=== PATIENT | female | born 1970 | race Caucasian/White ===

== ENCOUNTER 2018-02-21 14:09 | Emergency (ER) | payer MEDICAID ==
[~2018-02-21] VITALS: Ht 162.6 cm; Wt 58.0 kg
[~2018-02-21 14:09] MED LIST: ATOR10TA70 PO; ESOM40CA30 PO; GABA-532 PO; GABA300C PO; LITH300C43 PO; PAT0.1OS OP; THYROID MED; ZOL50T PO
[2018-02-21 14:15] VITALS: BP 126/71
[2018-02-21] MEDS ORDERED: AZIT-57 PO (14:44)
== END 2018-02-21 15:03 | disposition home or self-care (01) ==
LOC: ER 14:09
DX: J20.9 Acute bronchitis, unspecified (principal); E78.00 Pure hypercholesterolemia, unspecified; E03.9 Hypothyroidism, unspecified; Z56.0 Unemployment, unspecified; Z90.710 Acquired absence of both cervix and uterus; Z90.49 Acquired absence of other specified parts of digestive tract; Z79.899 Other long term (current) drug therapy
CPT/HCPCS: 99283

== ENCOUNTER 2018-08-22 18:04 | Emergency (ER) | payer MEDICAID ==
[~2018-08-22] VITALS: Ht 565.3 cm; Wt 72.0 kg
[2018-08-22 18:12] VITALS: BP 134/54
== END 2018-08-22 19:21 | disposition left against medical advice (07) ==
LOC: ER 18:05
DX: R07.9 Chest pain, unspecified (principal); R06.02 Shortness of breath; Z53.21 Procedure and treatment not carried out due to patient leaving prior to being seen by health care provider
CPT/HCPCS: 93005

== ENCOUNTER 2018-10-11 12:10 | Emergency (ER) | payer MEDICAID ==
[~2018-10-11] VITALS: Ht 162.6 cm; Wt 75.5 kg
[2018-10-11 12:33] VITALS: BP 115/59
[2018-10-11] MEDS ORDERED: TETanus/Pertussis (Acell)/Diphther VAC/PF (Tdap-Adult) 0.5ml syringe IM ONE (12:45)
== END 2018-10-11 13:26 | disposition home or self-care (01) ==
LOC: ER 12:11
DX: S91.332A Puncture wound without foreign body, left foot, initial encounter (principal); E78.00 Pure hypercholesterolemia, unspecified; E03.9 Hypothyroidism, unspecified; Z90.710 Acquired absence of both cervix and uterus; Z90.49 Acquired absence of other specified parts of digestive tract; Z56.0 Unemployment, unspecified; W22.8XXA Striking against or struck by other objects, initial encounter; Y93.89 Activity, other specified; Y92.89 Other specified places as the place of occurrence of the external cause; Y99.8 Other external cause status
CPT/HCPCS: 90471; 90715; 99283

== ENCOUNTER 2019-01-27 19:03 | Emergency (ER) | payer MEDICAID ==
[~2019-01-27] VITALS: Ht 162.6 cm; Wt 79.1 kg
[~2019-01-27 19:03] MED LIST changes: +TOBR5DRO2 LEFTEYE
[2019-01-27 19:17] VITALS: BP 113/68
[2019-01-27] MEDS ORDERED: ALBU8HFA PO (20:19)
== END 2019-01-27 20:46 | disposition home or self-care (01) ==
LOC: ER 19:03
DX: J45.909 Unspecified asthma, uncomplicated (principal); E78.00 Pure hypercholesterolemia, unspecified; E03.9 Hypothyroidism, unspecified; F15.90 Other stimulant use, unspecified, uncomplicated; F17.200 Nicotine dependence, unspecified, uncomplicated; Z90.49 Acquired absence of other specified parts of digestive tract; Z90.710 Acquired absence of both cervix and uterus; Z56.0 Unemployment, unspecified; Z79.899 Other long term (current) drug therapy
CPT/HCPCS: 71045; 93005; 99283

== ENCOUNTER 2020-04-14 17:43 | Emergency (ER) | payer MEDICAID ==
[~2020-04-14 17:43] MED LIST changes: -ESOM40CA30 PO; +ESOM40CA49 PO; +SERT-153 PO; -ZOL50T PO
== END 2020-04-14 18:16 | disposition left against medical advice (07) ==
LOC: ER 17:44
DX: R10.9 Unspecified abdominal pain (principal); Z53.21 Procedure and treatment not carried out due to patient leaving prior to being seen by health care provider

== ENCOUNTER 2020-04-17 13:38 | Emergency (ER) | payer MEDICAID ==
[~2020-04-17] VITALS: Ht 162.6 cm; Wt 85.2 kg
[2020-04-17 14:07] LABS: BASOPHILS # (AUTO) 0.1 X10'3 (0-0.2); BASOPHILS % (AUTO) 0.8 % (0-1); EOSINOPHILS # (AUTO) 0.2 X10'3 (0-0.9); EOSINOPHILS % (AUTO) 2.6 % (0-6); HEMATOCRIT 36.8 % (35.0-45.0); HEMOGLOBIN 12.2 g/dl (12.0-16.0); LYMPHOCYTES # (AUTO) 1.7 X10'3 (1.1-4.8); LYMPHOCYTES % (AUTO) 25.2 % (21-51); MEAN CORPUSCULAR HEMOGLOBIN 31.5 PG (27.0-31.0); MEAN CORPUSCULAR HGB CONC 33.1 g/dL (33.0-36.5); MEAN CORPUSCULAR VOLUME 95.2 FL (78-98); MEAN PLATELET VOLUME 7.8 FL (7.4-10.4); MONOCYTES # (AUTO) 0.5 X10'3 (0-0.9); MONOCYTES % (AUTO) 7.2 % (2-12); NEUTROPHILS # (AUTO) 4.3 X10'3 (1.8-7.7); NEUTROPHILS % (AUTO) 64.2 % (42-75); PLATELET COUNT 299 X10'3 (140-440); RED BLOOD COUNT 3.87 X10'6 (4.20-5.60); WHITE BLOOD COUNT 6.7 X10'3 (4.5-11.0)
[2020-04-17 14:20] LABS: ALANINE AMINOTRANSFERASE 22 U/L (12-78); ALBUMIN 3.9 G/DL (3.4-5.0); ALBUMIN/GLOBULIN RATIO 1.1 (1.1-1.5); ALKALINE PHOSPHATASE 68 IU/L (46-116); AMYLASE 48 U/L (25-115); ANION GAP 11 (8-16); ASPARTATE AMINO TRANSFERASE 19 U/L (10-37); BILIRUBIN,TOTAL 0.3 MG/DL (0.1-1.0); BLOOD UREA NITROGEN 14 MG/DL (7-18); BUN/CREATININE RATIO 12.5 (6.6-38.0); CALCIUM 9.7 MG/DL (8.5-10.1); CHLORIDE 105 MMOL/L (99-107); CREATININE 1.12 MG/DL (0.40-0.90); GLUCOSE 126 MG/DL (70-104); LIPASE 155 U/L (73-393); SODIUM 140 MMOL/L (135-145); TOTAL CARBON DIOXIDE 24.2 MMOL/L (24-32); TOTAL PROTEIN 7.4 G/DL (6.4-8.2); eGFR 51 ML/MIN
[2020-04-17 14:23] LABS: CLARITY,URINE CLEAR (Clear); COLOR,URINE YELLOW (Yellow); GLUCOSE, URINE NEGATIVE (Neg); KETONES,URINE NEGATIVE (Neg); LEUKOCYTE ESTERASE ,URINE NEGATIVE (Neg); NITRITES, URINE NEGATIVE (Neg); OCCULT BLOOD,URINE NEGATIVE (Neg); PROTEIN,URINE NEGATIVE (Neg); UROBILINOGEN,URINE 0.2 E.U/dL (0.2-1.0)
[2020-04-17 14:24] LABS: URINE HCG NEGATIVE (NEG)
[2020-04-17 14:26] LABS: UA COLLECTION TYPE CLN CATCH MIDSTREAM
[2020-04-17] MEDS ORDERED: ONDA4TAB6 PO (14:29)
[2020-04-17] MEDS ORDERED: ondansetron/PF 4mg/2ml inj IV ONE (14:30)
[2020-04-17] MEDS ORDERED: normal saline 1000ML IV soln IVB ONE (14:30)
[2020-04-17] MEDS ORDERED: ketorolac trometh. 30mg/ml inj. IV ONE (14:30)
[2020-04-17] MEDS ORDERED: famotidine/PF 10 mg/ml inj IV ONE (14:30)
[2020-04-17 15:22] VITALS: BP 100/62
== END 2020-04-17 15:25 | disposition home or self-care (01) ==
LOC: ER 13:39
DX: A08.4 Viral intestinal infection, unspecified (principal); R11.2 Nausea with vomiting, unspecified; R10.30 Lower abdominal pain, unspecified; E78.00 Pure hypercholesterolemia, unspecified; J45.909 Unspecified asthma, uncomplicated; E03.9 Hypothyroidism, unspecified; F17.200 Nicotine dependence, unspecified, uncomplicated; F15.90 Other stimulant use, unspecified, uncomplicated; Z56.0 Unemployment, unspecified; Z90.49 Acquired absence of other specified parts of digestive tract; Z90.710 Acquired absence of both cervix and uterus; Z79.899 Other long term (current) drug therapy
CPT/HCPCS: 36415; 80053; 81003; 81025; 82150; 83690; 85025; 96361; 96374; 96375; 99284; J1885; J2405; J3490; J7030

== ENCOUNTER 2020-05-25 07:54 | Day surgery (SDC) | payer MEDICAID ==
[~2020-05-25] VITALS: Ht 162.6 cm; Wt 81.8 kg
[~2020-05-25 07:54] MED LIST changes: +ONDA4TAB6 PO
[2020-05-25 08:05] VITALS: BP 135/80
[2020-05-25] MEDS ORDERED: LIDOcaine Viscous 15ml cup ONE (08:07)
[2020-05-25] MEDS ORDERED: MIDAZolam 5mg/5ml vial ONE (08:07)
[2020-05-25] MEDS ORDERED: fentaNYL/PF 50MCG/1 ML 2ML syringe ONE (08:07)
[2020-05-25] MEDS ORDERED: OLOP5DRO14 EACHEYE (08:57)
[2020-05-25 09:59] VITALS: BP 92/53
[2020-05-25 10:03] VITALS: BP 98/63
[2020-05-25 10:13] VITALS: BP 89/50
[2020-05-25 10:23] VITALS: BP 99/58
== END 2020-05-25 10:25 | disposition home or self-care (01) ==
LOC: GI LAB 07:54
PROVIDERS: ATTEND Internal Medicine Gastroenterology
DX: R13.10 Dysphagia, unspecified (principal); K29.50 Unspecified chronic gastritis without bleeding; K20.8 Other esophagitis
CPT/HCPCS: 43239; 99152; J2250; J3010; J7040; A4620

== ENCOUNTER 2020-08-14 13:14 | Emergency (ER) | payer MEDICAID ==
[~2020-08-14] VITALS: Ht 162.6 cm; Wt 86.1 kg
[~2020-08-14 13:14] MED LIST changes: -ESOM40CA49 PO; -GABA-532 PO; +OLOP5DRO14 EACHEYE; -ONDA4TAB6 PO; -PAT0.1OS OP; -TOBR5DRO2 LEFTEYE
[2020-08-14 13:30] VITALS: BP 146/68
[2020-08-14] MEDS ORDERED: iohexol 300mg/ml 100ml inj. ONE (15:21)
[2020-08-14 15:37] LABS: BASOPHILS # (AUTO) 0.1 X10'3 (0-0.2); BASOPHILS % (AUTO) 0.9 % (0-1); EOSINOPHILS # (AUTO) 0.2 X10'3 (0-0.9); EOSINOPHILS % (AUTO) 2.6 % (0-6); HEMATOCRIT 37.5 % (35.0-45.0); HEMOGLOBIN 12.5 g/dl (12.0-16.0); LYMPHOCYTES # (AUTO) 2.2 X10'3 (1.1-4.8); LYMPHOCYTES % (AUTO) 30.6 % (21-51); MEAN CORPUSCULAR HEMOGLOBIN 31.6 PG (27.0-31.0); MEAN CORPUSCULAR HGB CONC 33.2 g/dL (33.0-36.5); MEAN CORPUSCULAR VOLUME 95.1 FL (78-98); MEAN PLATELET VOLUME 7.3 FL (7.4-10.4); MONOCYTES # (AUTO) 0.5 X10'3 (0-0.9); MONOCYTES % (AUTO) 6.5 % (2-12); NEUTROPHILS # (AUTO) 4.3 X10'3 (1.8-7.7); NEUTROPHILS % (AUTO) 59.4 % (42-75); PLATELET COUNT 292 X10'3 (140-440); RED BLOOD COUNT 3.95 X10'6 (4.20-5.60); RED CELL DISTRIBUTION WIDTH 13.3 % (11.5-14.5); WHITE BLOOD COUNT 7.2 X10'3 (4.5-11.0)
[2020-08-14 15:52] LABS: ALANINE AMINOTRANSFERASE 106 U/L (12-78); ALBUMIN/GLOBULIN RATIO 1.1 (1.1-1.5); ALKALINE PHOSPHATASE 89 IU/L (46-116); ANION GAP 7 (8-16); ASPARTATE AMINO TRANSFERASE 43 U/L (10-37); BILIRUBIN,TOTAL 0.4 MG/DL (0.1-1.0); BLOOD UREA NITROGEN 21 MG/DL (7-18); CALCIUM 10.1 MG/DL (8.5-10.1); CHLORIDE 106 MMOL/L (99-107); GLUCOSE 85 MG/DL (70-104); POTASSIUM 3.9 MMOL/L (3.5-5.1); SODIUM 141 MMOL/L (135-145); TOTAL CARBON DIOXIDE 28.3 MMOL/L (24-32); TOTAL PROTEIN 7.7 G/DL (6.4-8.2); eGFR 58 ML/MIN
[2020-08-14] MEDS ORDERED: MISO100T42 PO (17:15)
== END 2020-08-14 17:35 | disposition home or self-care (01) ==
LOC: ER 13:14
DX: R10.9 Unspecified abdominal pain (principal); E78.00 Pure hypercholesterolemia, unspecified; J45.909 Unspecified asthma, uncomplicated; E03.9 Hypothyroidism, unspecified; F41.9 Anxiety disorder, unspecified; F31.9 Bipolar disorder, unspecified; F15.90 Other stimulant use, unspecified, uncomplicated; Z90.49 Acquired absence of other specified parts of digestive tract; Z98.890 Other specified postprocedural states; Z56.0 Unemployment, unspecified; Z79.899 Other long term (current) drug therapy
CPT/HCPCS: 36415; 74177; 80053; 85025; 99285; Q9967

== ENCOUNTER 2020-08-27 14:03 | Emergency (ER) | payer MEDICAID ==
[~2020-08-27] VITALS: Ht 162.6 cm; Wt 86.0 kg
[~2020-08-27 14:03] MED LIST changes: +MISO100T42 PO
[2020-08-27 14:45] LABS: BASOPHILS # (AUTO) 0.1 X10'3 (0-0.2); BASOPHILS % (AUTO) 0.7 % (0-1); EOSINOPHILS # (AUTO) 0.1 X10'3 (0-0.9); EOSINOPHILS % (AUTO) 1.2 % (0-6); HEMATOCRIT 35.7 % (35.0-45.0); HEMOGLOBIN 11.9 g/dl (12.0-16.0); LYMPHOCYTES # (AUTO) 1.9 X10'3 (1.1-4.8); LYMPHOCYTES % (AUTO) 23.6 % (21-51); MEAN CORPUSCULAR HEMOGLOBIN 31.7 PG (27.0-31.0); MEAN CORPUSCULAR HGB CONC 33.4 g/dL (33.0-36.5); MEAN CORPUSCULAR VOLUME 94.9 FL (78-98); MEAN PLATELET VOLUME 7.3 FL (7.4-10.4); MONOCYTES # (AUTO) 0.5 X10'3 (0-0.9); NEUTROPHILS # (AUTO) 5.4 X10'3 (1.8-7.7); NEUTROPHILS % (AUTO) 68.5 % (42-75); PLATELET COUNT 289 X10'3 (140-440); RED BLOOD COUNT 3.76 X10'6 (4.20-5.60); RED CELL DISTRIBUTION WIDTH 13.2 % (11.5-14.5); WHITE BLOOD COUNT 7.9 X10'3 (4.5-11.0)
[2020-08-27 14:45] LABS: CLARITY,URINE CLEAR (Clear); COLOR,URINE STRAW (Yellow); GLUCOSE, URINE NEGATIVE (Neg); KETONES,URINE NEGATIVE (Neg); LEUKOCYTE ESTERASE ,URINE NEGATIVE (Neg); NITRITES, URINE NEGATIVE (Neg); OCCULT BLOOD,URINE NEGATIVE (Neg); PROTEIN,URINE NEGATIVE (Neg); URINE HCG NEGATIVE (NEG); UROBILINOGEN,URINE 0.2 E.U/dL (0.2-1.0)
[2020-08-27 14:46] LABS: UA COLLECTION TYPE CLN CATCH MIDSTREAM
[2020-08-27 14:54] LABS: ALANINE AMINOTRANSFERASE 42 U/L (12-78); ALBUMIN 4.1 G/DL (3.4-5.0); ALBUMIN/GLOBULIN RATIO 1.1 (1.1-1.5); ALKALINE PHOSPHATASE 87 IU/L (46-116); ANION GAP 11 (8-16); ASPARTATE AMINO TRANSFERASE 23 U/L (10-37); BILIRUBIN,TOTAL 0.5 MG/DL (0.1-1.0); BLOOD UREA NITROGEN 18 MG/DL (7-18); BUN/CREATININE RATIO 16.5 (6.6-38.0); CALCIUM 9.5 MG/DL (8.5-10.1); CHLORIDE 99 MMOL/L (99-107); CREATININE 1.09 MG/DL (0.40-0.90); GLUCOSE 117 MG/DL (70-104); LIPASE 167 U/L (73-393); POTASSIUM 3.6 MMOL/L (3.5-5.1); SODIUM 132 MMOL/L (135-145); TOTAL CARBON DIOXIDE 22.4 MMOL/L (24-32); TOTAL PROTEIN 7.7 G/DL (6.4-8.2); eGFR 53 ML/MIN
[2020-08-27] MEDS ORDERED: metoclopramide 5 mg/ml inj IV ONE (14:55)
[2020-08-27 16:15] VITALS: BP 107/70
[2020-08-27] MEDS ORDERED: LINA145C PO (16:41)
== END 2020-08-27 17:05 | disposition home or self-care (01) ==
LOC: ER 14:04
DX: R10.84 Generalized abdominal pain (principal); E78.00 Pure hypercholesterolemia, unspecified; J45.909 Unspecified asthma, uncomplicated; E03.9 Hypothyroidism, unspecified; F41.9 Anxiety disorder, unspecified; F31.9 Bipolar disorder, unspecified; F15.90 Other stimulant use, unspecified, uncomplicated; Z90.49 Acquired absence of other specified parts of digestive tract; Z90.710 Acquired absence of both cervix and uterus; Z98.890 Other specified postprocedural states; Z56.0 Unemployment, unspecified; Z79.899 Other long term (current) drug therapy
CPT/HCPCS: 36415; 80053; 81003; 81025; 83690; 85025; 93308; 96374; 99284; J2765

== ENCOUNTER 2021-01-10 23:41 | Emergency (ER) | payer MEDICAID ==
[~2021-01-10] VITALS: Ht 162.6 cm; Wt 80.5 kg
[~2021-01-10 23:41] MED LIST changes: +LINA145C PO
[2021-01-10 23:45] VITALS: BP 121/59
[2021-01-11 00:15] LABS: CLARITY,URINE CLEAR (Clear); COLOR,URINE YELLOW (Yellow); GLUCOSE, URINE NEGATIVE (Neg); KETONES,URINE NEGATIVE (Neg); LEUKOCYTE ESTERASE ,URINE TRACE (Neg); NITRITES, URINE NEGATIVE (Neg); OCCULT BLOOD,URINE NEGATIVE (Neg); PH,URINE 5.5 (4.8-8.0); PROTEIN,URINE NEGATIVE (Neg); UROBILINOGEN,URINE 0.2 E.U/dL (0.2-1.0)
[2021-01-11 00:17] LABS: URINE HCG NEGATIVE (NEG)
[2021-01-11 00:22] LABS: UA COLLECTION TYPE CLN CATCH MIDSTREAM
[2021-01-11 00:23] LABS: BACTERIA,URINE NONE SEEN /HPF (Neg); RBC,URINE NONE SEEN /HPF (0-2); SQUAMOUS EPITHELIAL CELL,UR FEW /LPF (FEW); WBC,URINE 0-4 /HPF (0-4)
[2021-01-11] MEDS ORDERED: bisacodyl 5mg tablet.DR PO ONE (00:25)
[2021-01-11 00:41] LABS: BASOPHILS % (AUTO) 0.6 % (0-1); EOSINOPHILS # (AUTO) 0.2 X10'3 (0-0.9); EOSINOPHILS % (AUTO) 2.5 % (0-6); HEMATOCRIT 33.6 % (35.0-45.0); HEMOGLOBIN 11.4 g/dl (12.0-16.0); LYMPHOCYTES # (AUTO) 2.2 X10'3 (1.1-4.8); LYMPHOCYTES % (AUTO) 31.8 % (21-51); MEAN CORPUSCULAR HEMOGLOBIN 31.5 PG (27.0-31.0); MEAN CORPUSCULAR HGB CONC 33.9 g/dL (33.0-36.5); MEAN PLATELET VOLUME 7.5 FL (7.4-10.4); MONOCYTES # (AUTO) 0.5 X10'3 (0-0.9); MONOCYTES % (AUTO) 6.7 % (2-12); NEUTROPHILS # (AUTO) 4.1 X10'3 (1.8-7.7); NEUTROPHILS % (AUTO) 58.4 % (42-75); PLATELET COUNT 271 X10'3 (140-440); RED BLOOD COUNT 3.62 X10'6 (4.20-5.60)
[2021-01-11 01:01] LABS: ALANINE AMINOTRANSFERASE 26 U/L (12-78); ALBUMIN 3.9 G/DL (3.4-5.0); ALBUMIN/GLOBULIN RATIO 1.1 (1.1-1.5); ALKALINE PHOSPHATASE 66 IU/L (46-116); ANION GAP 9 (8-16); ASPARTATE AMINO TRANSFERASE 19 U/L (10-37); BILIRUBIN,TOTAL 0.3 MG/DL (0.1-1.0); BLOOD UREA NITROGEN 23 MG/DL (7-18); BUN/CREATININE RATIO 19.7 (6.6-38.0); CALCIUM 9.7 MG/DL (8.5-10.1); CHLORIDE 107 MMOL/L (99-107); CREATININE 1.17 MG/DL (0.40-0.90); GLUCOSE 96 MG/DL (70-104); LIPASE 181 U/L (73-393); POTASSIUM 3.7 MMOL/L (3.5-5.1); SODIUM 140 MMOL/L (135-145); TOTAL CARBON DIOXIDE 23.9 MMOL/L (24-32); TOTAL PROTEIN 7.3 G/DL (6.4-8.2); eGFR 49 ML/MIN
[2021-01-11] MEDS ORDERED: BISA-78 PO (01:06)
[2021-01-11] MEDS ORDERED: POLY17PO10 PO (01:06)
[2021-01-11] MEDS ORDERED: DICY10CA88 PO (01:14)
[2021-01-11] MEDS ORDERED: dicyclomine 10 MG capsule PO ONE (01:15)
== END 2021-01-11 01:20 | disposition home or self-care (01) ==
LOC: ER 23:42
DX: R10.84 Generalized abdominal pain (principal); K59.00 Constipation, unspecified; R11.0 Nausea; R30.9 Painful micturition, unspecified; E78.00 Pure hypercholesterolemia, unspecified; J45.909 Unspecified asthma, uncomplicated; E03.9 Hypothyroidism, unspecified; F41.9 Anxiety disorder, unspecified; F31.9 Bipolar disorder, unspecified; Z90.89 Acquired absence of other organs; Z90.710 Acquired absence of both cervix and uterus; Z98.890 Other specified postprocedural states; Z72.89 Other problems related to lifestyle; Z56.0 Unemployment, unspecified; Z79.899 Other long term (current) drug therapy
CPT/HCPCS: 36415; 80053; 81001; 81025; 83690; 85025; 87088; 99283

== ENCOUNTER 2021-02-20 00:01 | Emergency (ER) | payer MEDICAID ==
[~2021-02-20] VITALS: Ht 162.6 cm; Wt 85.9 kg
[~2021-02-20 00:01] MED LIST changes: +BISA-78 PO
[2021-02-20 00:06] VITALS: BP 142/59
[2021-02-20 00:47] LABS: URINE HCG NEGATIVE (NEG)
[2021-02-20 00:51] LABS: ALANINE AMINOTRANSFERASE 28 U/L (12-78); ALBUMIN/GLOBULIN RATIO 1.1 (1.1-1.5); ALKALINE PHOSPHATASE 77 IU/L (46-116); ANION GAP 10 (8-16); ASPARTATE AMINO TRANSFERASE 14 U/L (10-37); BILIRUBIN,TOTAL 0.4 MG/DL (0.1-1.0); BLOOD UREA NITROGEN 15 MG/DL (7-18); BUN/CREATININE RATIO 13.5 (6.6-38.0); CALCIUM 9.6 MG/DL (8.5-10.1); CHLORIDE 104 MMOL/L (99-107); CREATININE 1.11 MG/DL (0.40-0.90); GLUCOSE 110 MG/DL (70-104); LIPASE 177 U/L (73-393); POTASSIUM 3.6 MMOL/L (3.5-5.1); SODIUM 140 MMOL/L (135-145); TOTAL CARBON DIOXIDE 26.5 MMOL/L (24-32); TOTAL PROTEIN 7.8 G/DL (6.4-8.2); eGFR 52 ML/MIN
[2021-02-20] MEDS ORDERED: ketorolac tromethamine 15mg/ml inj. IM ONE (00:55)
[2021-02-20] MEDS ORDERED: ondansetron 4mg rapidly disintigrating tab PO ONE (00:55)
[2021-02-20 01:02] LABS: CLARITY,URINE CLEAR (Clear); COLOR,URINE STRAW (Yellow); GLUCOSE, URINE NEGATIVE (Neg); KETONES,URINE NEGATIVE (Neg); LEUKOCYTE ESTERASE ,URINE TRACE (Neg); NITRITES, URINE NEGATIVE (Neg); OCCULT BLOOD,URINE NEGATIVE (Neg); PROTEIN,URINE NEGATIVE (Neg); UA COLLECTION TYPE CLN CATCH MIDSTREAM; UROBILINOGEN,URINE 0.2 E.U/dL (0.2-1.0)
[2021-02-20 01:04] LABS: HEMOGLOBIN 12.5 g/dl (12.0-16.0)
[2021-02-20 01:05] LABS: BASOPHILS # (AUTO) 0.1 X10'3 (0-0.2); BASOPHILS % (AUTO) 0.9 % (0-1); EOSINOPHILS # (AUTO) 0.2 X10'3 (0-0.9); EOSINOPHILS % (AUTO) 2.3 % (0-6); HEMATOCRIT 37.8 % (35.0-45.0); LYMPHOCYTES # (AUTO) 2.7 X10'3 (1.1-4.8); LYMPHOCYTES % (AUTO) 37.3 % (21-51); MEAN CORPUSCULAR HEMOGLOBIN 30.8 PG (27.0-31.0); MEAN CORPUSCULAR VOLUME 93.3 FL (78-98); MEAN PLATELET VOLUME 7.9 FL (7.4-10.4); MONOCYTES # (AUTO) 0.5 X10'3 (0-0.9); MONOCYTES % (AUTO) 6.7 % (2-12); NEUTROPHILS # (AUTO) 3.8 X10'3 (1.8-7.7); NEUTROPHILS % (AUTO) 52.8 % (42-75); PLATELET COUNT 283 X10'3 (140-440); RED BLOOD COUNT 4.06 X10'6 (4.20-5.60); RED CELL DISTRIBUTION WIDTH 12.7 % (11.5-14.5); WHITE BLOOD COUNT 7.3 X10'3 (4.5-11.0)
[2021-02-20 01:10] LABS: BACTERIA,URINE NONE SEEN /HPF (Neg); MUCUS STRANDS NONE SEEN /LPF (Neg); RBC,URINE 0-2 /HPF (0-2); SQUAMOUS EPITHELIAL CELL,UR NONE SEEN /LPF (FEW); WBC,URINE 0-4 /HPF (0-4)
== END 2021-02-20 02:57 | disposition home or self-care (01) ==
LOC: ER 00:01
DX: R10.12 Left upper quadrant pain (principal); R11.0 Nausea; E78.00 Pure hypercholesterolemia, unspecified; J45.909 Unspecified asthma, uncomplicated; E03.9 Hypothyroidism, unspecified; F41.9 Anxiety disorder, unspecified; F31.9 Bipolar disorder, unspecified; F17.200 Nicotine dependence, unspecified, uncomplicated; F15.90 Other stimulant use, unspecified, uncomplicated; Z90.49 Acquired absence of other specified parts of digestive tract; Z90.710 Acquired absence of both cervix and uterus; Z72.89 Other problems related to lifestyle; Z98.890 Other specified postprocedural states; Z56.0 Unemployment, unspecified; Z79.899 Other long term (current) drug therapy
CPT/HCPCS: 36415; 74176; 80053; 81001; 81025; 83690; 85025; 87088; 96372; 99284; J1885

== ENCOUNTER 2021-06-27 21:18 | Emergency (ER) | payer MEDICAID ==
[~2021-06-27] VITALS: Ht 162.6 cm; Wt 84.0 kg
[2021-06-27 21:36] VITALS: BP 129/75
== END 2021-06-28 00:28 | disposition left against medical advice (07) ==
LOC: ER 21:19
DX: R06.02 Shortness of breath (principal); Z53.21 Procedure and treatment not carried out due to patient leaving prior to being seen by health care provider

== ENCOUNTER 2021-11-20 00:09 | Inpatient (IN) | payer MEDICAID ==
[2021-11-20] VITALS (9 sets, daily range): BP systolic 92–108; BP diastolic 48–63
[~2021-11-20] VITALS: Ht 162.6 cm; Wt 88.6 kg
[2021-11-20] MEDS ORDERED: aspirin 81mg tab.chew PO ONE (00:25)
[2021-11-20] MEDS ORDERED: nitroGLYCERIN 0.4mg SUBLingual tab SL PRN ×2 (01:00→02:55)
[2021-11-20 01:08] LABS: BASOPHILS % (AUTO) 0.8 % (0-1); EOSINOPHILS # (AUTO) 0.1 X10'3 (0-0.9); EOSINOPHILS % (AUTO) 2.3 % (0-6); HEMATOCRIT 35.3 % (35.0-45.0); HEMOGLOBIN 12.1 g/dl (12.0-16.0); LYMPHOCYTES # (AUTO) 1.9 X10'3 (1.1-4.8); LYMPHOCYTES % (AUTO) 32.9 % (21-51); MEAN CORPUSCULAR HGB CONC 34.2 g/dL (33.0-36.5); MEAN CORPUSCULAR VOLUME 93.6 FL (78-98); MEAN PLATELET VOLUME 7.8 FL (7.4-10.4); MONOCYTES # (AUTO) 0.4 X10'3 (0-0.9); MONOCYTES % (AUTO) 7.7 % (2-12); NEUTROPHILS # (AUTO) 3.3 X10'3 (1.8-7.7); NEUTROPHILS % (AUTO) 56.3 % (42-75); PLATELET COUNT 274 X10'3 (140-440); RED BLOOD COUNT 3.77 X10'6 (4.20-5.60); RED CELL DISTRIBUTION WIDTH 12.9 % (11.5-14.5); WHITE BLOOD COUNT 5.8 X10'3 (4.5-11.0)
[2021-11-20 01:12] LABS: ALANINE AMINOTRANSFERASE 41 U/L (12-78); ALBUMIN/GLOBULIN RATIO 1.1 (1.1-1.5); ALKALINE PHOSPHATASE 76 IU/L (46-116); ANION GAP 9 (8-16); ASPARTATE AMINO TRANSFERASE 27 U/L (10-37); BILIRUBIN,TOTAL 0.4 MG/DL (0.1-1.0); BLOOD UREA NITROGEN 15 MG/DL (7-18); BUN/CREATININE RATIO 14.2 (6.6-38.0); CALCIUM 9.6 MG/DL (8.5-10.1); CHLORIDE 107 MMOL/L (99-107); CREATININE 1.06 MG/DL (0.40-0.90); GLUCOSE 124 MG/DL (70-104); POTASSIUM 3.5 MMOL/L (3.5-5.1); SODIUM 140 MMOL/L (135-145); TOTAL CARBON DIOXIDE 24.5 MMOL/L (24-32); TOTAL PROTEIN 7.6 G/DL (6.4-8.2); eGFR 54 ML/MIN
[2021-11-20 01:20] LABS: MAGNESIUM 2.3 MG/DL (1.5-2.4)
[2021-11-20] MEDS ORDERED: magnesium 2GM in 50ml NS 50 ML IV PRN (02:55)
[2021-11-20] MEDS ORDERED: mag hydrox/Alum hydrox/simeth 30ml oral suspension PO PRN (02:55)
[2021-11-20] MEDS ORDERED: morphine 2 MG/ML inj. syringe IV PRN ×2 (02:55)
[2021-11-20] MEDS ORDERED: potassium Cl 20 mEq SR tablet PO PRN ×2 (02:55)
[2021-11-20] MEDS ORDERED: acetaminophen 325mg tablet PO PRN ×2 (02:55)
[2021-11-20] MEDS ORDERED: magnesium 4gm in 100ml NS 100 ML IV PRN (02:55)
[2021-11-20] MEDS ORDERED: aminophylline 250mg/10ml inj. IV PRN (02:55)
[2021-11-20] MEDS ORDERED: regadenoson 0.4mg/5ml syringe IV PRN (02:55)
[2021-11-20] MEDS ORDERED: potassium CL 10mEq/100ml bag 100 ML IV PRN (02:55)
[2021-11-20] MEDS ORDERED: HYDROcodone/acetaminophen 10/325mg tab PO PRN (02:55)
[2021-11-20] MEDS ORDERED: magnesium hydroxide 30ml (MOM) UD suspension PO PRN (02:55)
[2021-11-20] MEDS ORDERED: ondansetron/PF 4mg/2ml inj IV PRN (02:55)
[2021-11-20] MEDS ORDERED: HYDROcodone/acetaminophen 5mg/325mg tablet PO PRN (02:55)
[2021-11-20] MEDS ORDERED: metoprolol tartrate 1mg/ml inj IV PRN (02:55)
[2021-11-20] MEDS ORDERED: magnesium Cl slow-release 64mg tablet PO PRN (02:55)
[2021-11-20] MEDS ORDERED: cyclobenzaprine 10mg tablet PO ONE (03:15)
[2021-11-20] MEDS: normal saline 1000ml 1,000 ML IV SCH ×2 (03:19→09:13)
[2021-11-20 07:09] LABS: CHOL/HDL RATIO 3.5 (0.00-4.99); CHOLESTEROL 177 MG/DL (0-200); HDL CHOLESTEROL 51 MG/DL (35-60); LDL CHOLESTEROL 106 MG/DL (50-100); TRIGLYCERIDES 118 MG/DL (20-135)
[2021-11-20] MEDS ORDERED: pantoprazole 40mg Tablet.DR PO SCH (07:30)
[2021-11-20] MEDS ORDERED: NICO-630 TD (07:43)
[2021-11-20] MEDS ORDERED: LEVO25TA7 PO (07:43)
[2021-11-20] MEDS ORDERED: TRAZ-256 PO (07:43)
[2021-11-20] MEDS ORDERED: BECL10.6 PO (07:43)
[2021-11-20] MEDS ORDERED: K and/or MAG REPLACEMENT MC SCH (08:00)
[2021-11-20] MEDS ORDERED: docusate sod 100mg capsule PO SCH (08:00)
[2021-11-20] MEDS ORDERED: normal saline 500ml IV soln 500 ML IV ONE (09:00)
--- NOTE | 2021-11-20 09:19 | NUR ---
hypotensive and bradycaric, Dr. Hedrick updated. 500ml NS bolus ordered. BP improved. See VS documentation.
--- NOTE | 2021-11-20 13:42 | NUR ---
DC INSTRUCTIONS REVIEWED, PT DENIES QUESTIONS
[2021-11-20] MEDS ORDERED: temazepam 15mg capsule PO PRN (21:00)
== END 2021-11-20 13:43 | disposition home or self-care (01) | DRG 203 ==
LOC: ER 00:10 → ED HOLD 02:57
PROVIDERS: ADMIT Internal Medicine; ATTEND Family Medicine
PROC: 4A02XM4 Measurement of Cardiac Total Activity, External Approach (ICD-10-PCS; principal; 2021-11-20)
PROC: 3E073KZ Introduction of Other Diagnostic Substance into Coronary Artery, Percutaneous Approach (ICD-10-PCS; 2021-11-20)
DX: R07.89 Other chest pain (principal); E03.9 Hypothyroidism, unspecified; E78.00 Pure hypercholesterolemia, unspecified; E78.5 Hyperlipidemia, unspecified; Z20.822 Contact with and (suspected) exposure to COVID-19; F17.210 Nicotine dependence, cigarettes, uncomplicated; F31.9 Bipolar disorder, unspecified; F41.9 Anxiety disorder, unspecified; J45.909 Unspecified asthma, uncomplicated; Z82.49 Family history of ischemic heart disease and other diseases of the circulatory system; Z90.710 Acquired absence of both cervix and uterus; Z56.0 Unemployment, unspecified; Z71.6 Tobacco abuse counseling
CPT/HCPCS: 36415; 71045; 78452; 80053; 80061; 83735; 83880; 84484; 85025; 87635; 93005; 93017; 93306; 99285; A9500; G0378; J2405; J2785; J7030; J7040

== ENCOUNTER 2022-02-27 09:46 | Emergency (ER) | payer MEDICAID ==
[~2022-02-27] VITALS: Ht 162.6 cm; Wt 86.4 kg
[~2022-02-27 09:46] MED LIST changes: +BECL10.6 PO; -BISA-78 PO; +LEVO25TA7 PO; -LINA145C PO; -MISO100T42 PO; +NICO-630 TD; -OLOP5DRO14 EACHEYE; -THYROID MED; +TRAZ-256 PO
[2022-02-27 10:25] LABS: CLARITY,URINE SLIGHTLY CLOUDY (Clear); COLOR,URINE YELLOW (Yellow); GLUCOSE, URINE NEGATIVE (Neg); KETONES,URINE NEGATIVE (Neg); LEUKOCYTE ESTERASE ,URINE SMALL (Neg); NITRITES, URINE NEGATIVE (Neg); OCCULT BLOOD,URINE NEGATIVE (Neg); PH,URINE 6.5 (4.8-8.0); PROTEIN,URINE NEGATIVE (Neg); UA COLLECTION TYPE CLN CATCH MIDSTREAM; UROBILINOGEN,URINE 0.2 E.U/dL (0.2-1.0)
[2022-02-27 10:27] LABS: BASOPHILS % (AUTO) 0.9 % (0-1); EOSINOPHILS # (AUTO) 0.1 X10'3 (0-0.9); EOSINOPHILS % (AUTO) 2.6 % (0-6); HEMATOCRIT 36.9 % (35.0-45.0); HEMOGLOBIN 12.2 g/dl (12.0-16.0); LYMPHOCYTES # (AUTO) 1.5 X10'3 (1.1-4.8); LYMPHOCYTES % (AUTO) 27.1 % (21-51); MEAN CORPUSCULAR HGB CONC 33.2 g/dL (33.0-36.5); MEAN CORPUSCULAR VOLUME 93.5 FL (78-98); MEAN PLATELET VOLUME 7.3 FL (7.4-10.4); MONOCYTES # (AUTO) 0.4 X10'3 (0-0.9); MONOCYTES % (AUTO) 6.5 % (2-12); NEUTROPHILS # (AUTO) 3.5 X10'3 (1.8-7.7); NEUTROPHILS % (AUTO) 62.9 % (42-75); PLATELET COUNT 335 X10'3 (140-440); RED BLOOD COUNT 3.94 X10'6 (4.20-5.60); RED CELL DISTRIBUTION WIDTH 13.2 % (11.5-14.5); WHITE BLOOD COUNT 5.5 X10'3 (4.5-11.0)
[2022-02-27 10:36] LABS: BACTERIA,URINE FEW /HPF (Neg); MUCUS STRANDS FEW /LPF (Neg); SQUAMOUS EPITHELIAL CELL,UR FEW /LPF (FEW); WBC CLUMPS,URINE FEW /HPF (NEGATIVE)
[2022-02-27 10:37] LABS: RBC,URINE 0-2 /HPF (0-2)
[2022-02-27 10:40] LABS: ALANINE AMINOTRANSFERASE 33 U/L (12-78); ALBUMIN 4.1 G/DL (3.4-5.0); ALBUMIN/GLOBULIN RATIO 1.1 (1.1-1.5); ALKALINE PHOSPHATASE 76 IU/L (46-116); BILIRUBIN,TOTAL 0.7 MG/DL (0.1-1.0); BLOOD UREA NITROGEN 12 MG/DL (7-18); BUN/CREATININE RATIO 10.8 (6.6-38.0); CALCIUM 9.9 MG/DL (8.5-10.1); CHLORIDE 105 MMOL/L (99-107); CREATININE 1.11 MG/DL (0.40-0.90); GLUCOSE 110 MG/DL (70-104); LIPASE 86 U/L (73-393); POTASSIUM 3.9 MMOL/L (3.5-5.1); SODIUM 139 MMOL/L (135-145); TOTAL PROTEIN 7.8 G/DL (6.4-8.2); eGFR 51 ML/MIN
[2022-02-27 10:42] LABS: ANION GAP 13 (8-16); ASPARTATE AMINO TRANSFERASE 18 U/L (10-37); TOTAL CARBON DIOXIDE 20.8 MMOL/L (24-32)
[2022-02-27 13:56] VITALS: BP 100/40
[2022-02-27] MEDS ORDERED: METO-292 PO (13:59)
[2022-02-27] MEDS ORDERED: CEPH500C2 PO (14:00)
[2022-02-27] MEDS ORDERED: metoclopramide 10mg tablet PO ONE (14:00)
[2022-02-27] MEDS ORDERED: cephalexin 250mg capsule PO ONE (14:00)
== END 2022-02-27 14:19 | disposition home or self-care (01) ==
LOC: ER 09:47
DX: N39.0 Urinary tract infection, site not specified (principal); R51.9 Headache, unspecified; E78.00 Pure hypercholesterolemia, unspecified; J45.909 Unspecified asthma, uncomplicated; E06.9 Thyroiditis, unspecified; F31.9 Bipolar disorder, unspecified; Z56.0 Unemployment, unspecified; Z79.899 Other long term (current) drug therapy
CPT/HCPCS: 36415; 80053; 81001; 83690; 85025; 87088; 87491; 99283

== ENCOUNTER 2022-03-18 16:26 | Emergency (ER) | payer MEDICAID ==
[~2022-03-18] VITALS: Ht 162.6 cm; Wt 81.0 kg
[2022-03-18 16:29] VITALS: BP 105/68
== END 2022-03-18 17:24 | disposition home or self-care (01) ==
LOC: ER 16:26
DX: R07.9 Chest pain, unspecified (principal)
CPT/HCPCS: 71046; 99283

== ENCOUNTER 2022-03-27 22:48 | Emergency (ER) | payer MEDICAID ==
[~2022-03-27] VITALS: Ht 162.6 cm; Wt 81.8 kg
[2022-03-27 23:24] LABS: BASOPHILS # (AUTO) 0.1 X10'3 (0-0.2); EOSINOPHILS # (AUTO) 0.2 X10'3 (0-0.9); HEMATOCRIT 37.2 % (35.0-45.0); HEMOGLOBIN 12.3 g/dl (12.0-16.0); LYMPHOCYTES # (AUTO) 2.2 X10'3 (1.1-4.8); MEAN CORPUSCULAR HEMOGLOBIN 30.9 PG (27.0-31.0); MEAN CORPUSCULAR HGB CONC 33.1 g/dL (33.0-36.5); MEAN CORPUSCULAR VOLUME 93.3 FL (78-98); MEAN PLATELET VOLUME 7.3 FL (7.4-10.4); MONOCYTES # (AUTO) 0.5 X10'3 (0-0.9); MONOCYTES % (AUTO) 6.5 % (2-12); NEUTROPHILS # (AUTO) 4.7 X10'3 (1.8-7.7); NEUTROPHILS % (AUTO) 61.5 % (42-75); PLATELET COUNT 317 X10'3 (140-440); RED BLOOD COUNT 3.99 X10'6 (4.20-5.60); RED CELL DISTRIBUTION WIDTH 13.2 % (11.5-14.5); WHITE BLOOD COUNT 7.6 X10'3 (4.5-11.0)
[2022-03-27 23:35] LABS: ALANINE AMINOTRANSFERASE 45 U/L (12-78); ALBUMIN 3.9 G/DL (3.4-5.0); ALBUMIN/GLOBULIN RATIO 1.1 (1.1-1.5); ALKALINE PHOSPHATASE 83 IU/L (46-116); ANION GAP 9 (8-16); ASPARTATE AMINO TRANSFERASE 20 U/L (10-37); BILIRUBIN,TOTAL 0.3 MG/DL (0.1-1.0); BLOOD UREA NITROGEN 19 MG/DL (7-18); BUN/CREATININE RATIO 18.1 (6.6-38.0); CALCIUM 9.8 MG/DL (8.5-10.1); CHLORIDE 108 MMOL/L (99-107); CREATININE 1.05 MG/DL (0.40-0.90); GLUCOSE 106 MG/DL (70-104); POTASSIUM 3.5 MMOL/L (3.5-5.1); SODIUM 143 MMOL/L (135-145); TOTAL CARBON DIOXIDE 25.9 MMOL/L (24-32); TOTAL PROTEIN 7.6 G/DL (6.4-8.2); eGFR 55 ML/MIN
[2022-03-28] MEDS ORDERED: ketorolac trometh. 30mg/ml inj. IV ONE (00:50)
[2022-03-28 01:24] LABS: D-DIMER < 0.19 MG/L FEU (0-0.50)
[2022-03-28 02:05] LABS: CLARITY,URINE SLIGHTLY CLOUDY (Clear); COLOR,URINE YELLOW (Yellow); GLUCOSE, URINE NEGATIVE (Neg); KETONES,URINE NEGATIVE (Neg); LEUKOCYTE ESTERASE ,URINE LARGE (Neg); NITRITES, URINE NEGATIVE (Neg); OCCULT BLOOD,URINE NEGATIVE (Neg); PH,URINE 6.5 (4.8-8.0); PROTEIN,URINE NEGATIVE (Neg); UROBILINOGEN,URINE 0.2 E.U/dL (0.2-1.0)
[2022-03-28 02:30] LABS: UA COLLECTION TYPE CLN CATCH MIDSTREAM
[2022-03-28 02:46] LABS: BACTERIA,URINE 1+ /HPF (Neg); RBC,URINE 0-2 /HPF (0-2); SQUAMOUS EPITHELIAL CELL,UR FEW /LPF (FEW)
[2022-03-28 02:47] LABS: MUCUS STRANDS FEW /LPF (Neg); TRANSITIONAL EPI CELLS,URINE FEW /HPF; WBC CLUMPS,URINE FEW /HPF (NEGATIVE)
[2022-03-28] MEDS ORDERED: cephalexin 250mg capsule PO ONE (02:50)
[2022-03-28] MEDS ORDERED: CIPR250T26 PO ×3 (02:53→03:05)
[2022-03-28] MEDS ORDERED: ciprofloxacin 250mg tablet PO ONE (02:55)
[2022-03-28 03:12] VITALS: BP 128/73
== END 2022-03-28 03:13 | disposition home or self-care (01) ==
LOC: ER 22:49
DX: R07.89 Other chest pain (principal); N39.0 Urinary tract infection, site not specified; R05.9 Cough, unspecified; R11.10 Vomiting, unspecified; E78.00 Pure hypercholesterolemia, unspecified; J45.909 Unspecified asthma, uncomplicated; E03.9 Hypothyroidism, unspecified; F41.9 Anxiety disorder, unspecified; F31.9 Bipolar disorder, unspecified; F17.200 Nicotine dependence, unspecified, uncomplicated; Z90.89 Acquired absence of other organs; Z90.710 Acquired absence of both cervix and uterus; Z72.89 Other problems related to lifestyle; Z56.0 Unemployment, unspecified; Z79.2 Long term (current) use of antibiotics; Z79.899 Other long term (current) drug therapy
CPT/HCPCS: 36415; 71045; 80053; 81001; 84484; 85025; 85379; 87077; 87088; 87186; 93005; 96374; 99285; J1885

== ENCOUNTER 2022-04-07 18:02 | Emergency (ER) | payer MEDICAID ==
[~2022-04-07] VITALS: Ht 162.6 cm; Wt 86.4 kg
[~2022-04-07 18:02] MED LIST changes: +CIPR250T26 PO
[2022-04-07 18:28] VITALS: BP 131/73
[2022-04-07 19:27] LABS: CLARITY,URINE CLEAR (Clear); COLOR,URINE STRAW (Yellow); GLUCOSE, URINE NEGATIVE (Neg); KETONES,URINE NEGATIVE (Neg); LEUKOCYTE ESTERASE ,URINE MODERATE (Neg); NITRITES, URINE NEGATIVE (Neg); OCCULT BLOOD,URINE NEGATIVE (Neg); PH,URINE 6.5 (4.8-8.0); PROTEIN,URINE NEGATIVE (Neg); UA COLLECTION TYPE CLN CATCH MIDSTREAM; UROBILINOGEN,URINE 0.2 E.U/dL (0.2-1.0)
[2022-04-07 19:34] LABS: BACTERIA,URINE 1+ /HPF (Neg); MUCUS STRANDS NONE SEEN /LPF (Neg); RBC,URINE NONE SEEN /HPF (0-2); SQUAMOUS EPITHELIAL CELL,UR FEW /LPF (FEW)
--- NOTE | 2022-04-07 20:02 | NUR ---
Pt back from CT, pink, alert, no acute/resp distress. Bed in lowest position, wheels locked, rail up, call rodriguez in reach.
[2022-04-07 20:08] LABS: BASOPHILS % (AUTO) 0.8 % (0-1); EOSINOPHILS # (AUTO) 0.1 X10'3 (0-0.9); EOSINOPHILS % (AUTO) 2.4 % (0-6); HEMATOCRIT 36.6 % (35.0-45.0); HEMOGLOBIN 12.3 g/dl (12.0-16.0); LYMPHOCYTES # (AUTO) 1.7 X10'3 (1.1-4.8); LYMPHOCYTES % (AUTO) 29.3 % (21-51); MEAN CORPUSCULAR HEMOGLOBIN 31.1 PG (27.0-31.0); MEAN CORPUSCULAR HGB CONC 33.7 g/dL (33.0-36.5); MEAN CORPUSCULAR VOLUME 92.3 FL (78-98); MEAN PLATELET VOLUME 7.5 FL (7.4-10.4); MONOCYTES # (AUTO) 0.5 X10'3 (0-0.9); MONOCYTES % (AUTO) 8.1 % (2-12); NEUTROPHILS # (AUTO) 3.5 X10'3 (1.8-7.7); NEUTROPHILS % (AUTO) 59.4 % (42-75); PLATELET COUNT 308 X10'3 (140-440); RED BLOOD COUNT 3.96 X10'6 (4.20-5.60); RED CELL DISTRIBUTION WIDTH 12.8 % (11.5-14.5); WHITE BLOOD COUNT 5.9 X10'3 (4.5-11.0)
[2022-04-07 20:24] LABS: ALANINE AMINOTRANSFERASE 76 U/L (12-78); ALKALINE PHOSPHATASE 103 IU/L (46-116); ANION GAP 12 (8-16); ASPARTATE AMINO TRANSFERASE 38 U/L (10-37); BILIRUBIN,TOTAL 0.4 MG/DL (0.1-1.0); BLOOD UREA NITROGEN 18 MG/DL (7-18); CALCIUM 9.9 MG/DL (8.5-10.1); CHLORIDE 105 MMOL/L (99-107); GLUCOSE 88 MG/DL (70-104); POTASSIUM 3.5 MMOL/L (3.5-5.1); SODIUM 142 MMOL/L (135-145); TOTAL CARBON DIOXIDE 24.7 MMOL/L (24-32); TOTAL PROTEIN 8.1 G/DL (6.4-8.2); eGFR 47 ML/MIN
[2022-04-07] MEDS ORDERED: levoFLOXACIN 250mg tablet PO ONE (20:40)
[2022-04-07] MEDS ORDERED: LEVO500T90 PO (20:51)
== END 2022-04-07 21:04 | disposition home or self-care (01) ==
LOC: ER 18:04
DX: N39.0 Urinary tract infection, site not specified (principal); E78.00 Pure hypercholesterolemia, unspecified; J45.909 Unspecified asthma, uncomplicated; E06.9 Thyroiditis, unspecified; F31.9 Bipolar disorder, unspecified; Z56.0 Unemployment, unspecified
CPT/HCPCS: 36415; 74176; 80053; 81001; 85025; 87088; 99284

== ENCOUNTER 2022-04-19 19:39 | Emergency (ER) | payer MEDICAID ==
[~2022-04-19] VITALS: Ht 162.6 cm; Wt 81.8 kg
[2022-04-19 19:41] VITALS: BP 122/73
[2022-04-19 20:46] LABS: CLARITY,URINE CLEAR (Clear); GLUCOSE, URINE NEGATIVE (Neg); KETONES,URINE NEGATIVE (Neg); LEUKOCYTE ESTERASE ,URINE SMALL (Neg); NITRITES, URINE NEGATIVE (Neg); OCCULT BLOOD,URINE NEGATIVE (Neg); PROTEIN,URINE NEGATIVE (Neg); UROBILINOGEN,URINE 0.2 E.U/dL (0.2-1.0)
[2022-04-19 20:52] LABS: COLOR,URINE STRAW (Yellow); UA COLLECTION TYPE VOIDED
[2022-04-19 20:54] LABS: BACTERIA,URINE FEW /HPF (Neg); RBC,URINE 0-2 /HPF (0-2); SQUAMOUS EPITHELIAL CELL,UR FEW /LPF (FEW); WBC CLUMPS,URINE MODERATE /HPF (NEGATIVE)
[2022-04-19] MEDS ORDERED: PHEN-716 PO (21:38)
[2022-04-19] MEDS ORDERED: CIPR-259 PO (21:38)
[2022-04-19] MEDS ORDERED: ciprofloxacin 250mg tablet PO ONE (21:40)
[2022-04-19] MEDS ORDERED: phenazopyridine 100mg tablet PO ONE (21:40)
== END 2022-04-19 22:05 | disposition home or self-care (01) ==
LOC: ER 19:42
DX: N39.0 Urinary tract infection, site not specified (principal); R30.0 Dysuria; R11.0 Nausea; R42 Dizziness and giddiness; E78.00 Pure hypercholesterolemia, unspecified; J45.909 Unspecified asthma, uncomplicated; E03.9 Hypothyroidism, unspecified; F41.9 Anxiety disorder, unspecified; F31.9 Bipolar disorder, unspecified; Z87.440 Personal history of urinary (tract) infections; Z90.710 Acquired absence of both cervix and uterus; Z90.89 Acquired absence of other organs; Z56.0 Unemployment, unspecified; Z72.89 Other problems related to lifestyle; Z79.2 Long term (current) use of antibiotics; Z79.899 Other long term (current) drug therapy
CPT/HCPCS: 81001; 87088; 99283

== ENCOUNTER 2022-07-15 18:06 | Emergency (ER) | payer MEDICAID ==
[~2022-07-15] VITALS: Ht 162.6 cm; Wt 90.9 kg
[~2022-07-15 18:06] MED LIST changes: +PHEN-716 PO
[2022-07-15 18:33] VITALS: BP 142/88
--- NOTE | 2022-07-15 20:46 | NUR ---
PT STATES SHE IS GOING TO [facility] ITS TAKING TOO LONG HERE. INFORMED
== END 2022-07-15 20:48 | disposition left against medical advice (07) ==
LOC: ER 18:06
DX: R06.02 Shortness of breath (principal); Z53.21 Procedure and treatment not carried out due to patient leaving prior to being seen by health care provider
CPT/HCPCS: 93005

== ENCOUNTER 2023-06-23 23:41 | Emergency (ER) | payer MEDICAID ==
[~2023-06-23] VITALS: Ht 162.6 cm; Wt 100.0 kg
[2023-06-24 00:11] VITALS: TEMP 98
[2023-06-24 01:21] LABS: BASOPHILS # (AUTO) 0.1 X10'3 (0-0.2); BASOPHILS % (AUTO) 1.1 % (0-1); EOSINOPHILS # (AUTO) 0.3 X10'3 (0-0.9); EOSINOPHILS % (AUTO) 2.9 % (0-6); HEMATOCRIT 38.1 % (35.0-45.0); HEMOGLOBIN 12.7 g/dl (12.0-16.0); LYMPHOCYTES # (AUTO) 2.6 X10'3 (1.1-4.8); LYMPHOCYTES % (AUTO) 29.5 % (21-51); MEAN CORPUSCULAR HEMOGLOBIN 31.1 PG (27.0-31.0); MEAN CORPUSCULAR HGB CONC 33.3 g/dL (33.0-36.5); MEAN CORPUSCULAR VOLUME 93.2 FL (78-98); MEAN PLATELET VOLUME 7.5 FL (7.4-10.4); MONOCYTES # (AUTO) 0.7 X10'3 (0-0.9); MONOCYTES % (AUTO) 7.8 % (2-12); NEUTROPHILS # (AUTO) 5.1 X10'3 (1.8-7.7); NEUTROPHILS % (AUTO) 58.7 % (42-75); PLATELET COUNT 325 X10'3 (140-440); RED BLOOD COUNT 4.08 X10'6 (4.20-5.60); RED CELL DISTRIBUTION WIDTH 13.6 % (11.5-14.5); WHITE BLOOD COUNT 8.7 X10'3 (4.5-11.0)
[2023-06-24 01:38] LABS: ALANINE AMINOTRANSFERASE 51 U/L (12-78); ALBUMIN/GLOBULIN RATIO 1.1 (1.1-1.5); ALKALINE PHOSPHATASE 94 IU/L (46-116); ANION GAP 12 (8-16); ASPARTATE AMINO TRANSFERASE 24 U/L (10-37); BILIRUBIN,TOTAL 0.3 MG/DL (0.1-1.0); BLOOD UREA NITROGEN 23 MG/DL (7-18); BUN/CREATININE RATIO 17.4 (10.0-20.0); CALCIUM 10.4 MG/DL (8.5-10.1); CHLORIDE 104 MMOL/L (99-107); CREATININE 1.32 MG/DL (0.40-0.90); GLUCOSE 114 MG/DL (70-104); POTASSIUM 3.4 MMOL/L (3.5-5.1); SODIUM 139 MMOL/L (135-145); TOTAL CARBON DIOXIDE 23.5 MMOL/L (24-32); TOTAL PROTEIN 7.7 G/DL (6.4-8.2); eGFR 42 ML/MIN
[2023-06-24 02:36] VITALS: BP 106/67; PULSE 64; O2SAT 96
[2023-06-24 03:00] VITALS: RESP 18
--- NOTE | 2023-06-24 03:04 | NUR ---
PT LEFT AMA. AMA PAPER SIGNED MD STILL
== END 2023-06-24 03:05 | disposition left against medical advice (07) ==
LOC: ER 23:42
DX: R06.02 Shortness of breath (principal); E78.00 Pure hypercholesterolemia, unspecified; E03.9 Hypothyroidism, unspecified; F31.9 Bipolar disorder, unspecified; F32.A Depression, unspecified; F17.200 Nicotine dependence, unspecified, uncomplicated; Z56.0 Unemployment, unspecified; Z79.899 Other long term (current) drug therapy; Z79.1 Long term (current) use of non-steroidal anti-inflammatories (NSAID); Z79.2 Long term (current) use of antibiotics
CPT/HCPCS: 36415; 71045; 80053; 83880; 84484; 85025; 93005; 99285

== ENCOUNTER 2023-09-11 19:36 | Emergency (ER) | payer MEDICAID ==
[~2023-09-11] VITALS: Ht 162.6 cm; Wt 96.0 kg
[2023-09-11 20:36] LABS: BASOPHILS # (AUTO) 0.1 X10'3 (0-0.2); BASOPHILS % (AUTO) 0.8 % (0-1); EOSINOPHILS # (AUTO) 0.2 X10'3 (0-0.9); EOSINOPHILS % (AUTO) 2.9 % (0-6); HEMATOCRIT 32.9 % (35.0-45.0); LYMPHOCYTES # (AUTO) 1.8 X10'3 (1.1-4.8); LYMPHOCYTES % (AUTO) 25.8 % (21-51); MEAN CORPUSCULAR HEMOGLOBIN 31.6 PG (27.0-31.0); MEAN CORPUSCULAR HGB CONC 33.5 g/dL (33.0-36.5); MEAN CORPUSCULAR VOLUME 94.3 FL (78-98); MEAN PLATELET VOLUME 7.6 FL (7.4-10.4); MONOCYTES # (AUTO) 0.6 X10'3 (0-0.9); MONOCYTES % (AUTO) 9.1 % (2-12); NEUTROPHILS # (AUTO) 4.3 X10'3 (1.8-7.7); NEUTROPHILS % (AUTO) 61.4 % (42-75); PLATELET COUNT 294 X10'3 (140-440); RED BLOOD COUNT 3.49 X10'6 (4.20-5.60)
[2023-09-11 20:52] LABS: ALANINE AMINOTRANSFERASE 92 U/L (12-78); ALBUMIN 3.8 G/DL (3.4-5.0); ALBUMIN/GLOBULIN RATIO 1.2 (1.1-1.5); ALKALINE PHOSPHATASE 81 IU/L (46-116); ANION GAP 8 (8-16); ASPARTATE AMINO TRANSFERASE 52 U/L (10-37); BILIRUBIN,TOTAL 0.5 MG/DL (0.1-1.0); BLOOD UREA NITROGEN 5 MG/DL (7-18); BUN/CREATININE RATIO 4.7 (10.0-20.0); CALCIUM 9.8 MG/DL (8.5-10.1); CHLORIDE 104 MMOL/L (99-107); CREATININE 1.07 MG/DL (0.40-0.90); GLUCOSE 104 MG/DL (70-104); SODIUM 138 MMOL/L (135-145); THYROID STIMULATING HORMONE 1.97 ulU/ml (0.34-4.50); TOTAL PROTEIN 7.1 G/DL (6.4-8.2); eCRCL 51 ML/MIN; eGFR 53 ML/MIN
[2023-09-11 20:54] LABS: POTASSIUM 2.6 MMOL/L (3.5-5.1)
[2023-09-11] MEDS ORDERED: magnesium oxide 400mg tablet PO ONE (20:55)
[2023-09-11] MEDS ORDERED: POTASSIUM BICARB 20meq eff tab 20 MEQ TABLET.EFF PO SCH (21:00)
[2023-09-11] MEDS ORDERED: POTASSIUM BICARB 20meq eff tab 20 MEQ TABLET.EFF PO ONE ×2 (21:00→23:40)
[2023-09-11 21:14] LABS: ETHANOL < 10 MG/DL (<10); MAGNESIUM 2.3 MG/DL (1.5-2.4)
[2023-09-11 21:42] LABS: URINE HCG NEGATIVE (NEG)
[2023-09-11 21:54] LABS: BILIRUBIN,URINE NEGATIVE (Neg); CLARITY,URINE SLIGHTLY CLOUDY (Clear); GLUCOSE, URINE NEGATIVE (Neg); KETONES,URINE NEGATIVE (Neg); LEUKOCYTE ESTERASE ,URINE NEGATIVE (Neg); NITRITES, URINE NEGATIVE (Neg); OCCULT BLOOD,URINE NEGATIVE (Neg); PH,URINE 6.5 (4.8-8.0); PROTEIN,URINE NEGATIVE (Neg); UROBILINOGEN,URINE 0.2 E.U/dL (0.2-1.0)
[2023-09-11 22:06] LABS: COLOR,URINE Straw (Yellow); UA COLLECTION TYPE CLN CATCH MIDSTREAM
[2023-09-11 22:09] LABS: BACTERIA,URINE FEW /HPF (Neg); MUCUS STRANDS NONE SEEN /LPF (Neg); RBC,URINE 0-2 /HPF (0-2); SQUAMOUS EPITHELIAL CELL,UR MANY /LPF (FEW); TRANSITIONAL EPI CELLS,URINE FEW /HPF; WBC,URINE 0-4 /HPF (0-4)
[2023-09-11] MEDS ORDERED: potassium Cl 20 mEq SR tablet PO ONE (23:35)
[2023-09-12 00:27] LABS: URINE AMPHETAMINE SCREEN POSITIVE (Neg); URINE BARBITUATE SCREEN NEGATIVE (Neg); URINE BENZODIAZEPINES SCREEN NEGATIVE (Neg); URINE CANNABINOID SCREEN NEGATIVE (Neg); URINE COCAINE SCREEN NEGATIVE (Neg); URINE METHADONE SCREEN NEGATIVE (Neg); URINE OPIATE SCREEN NEGATIVE (Neg); URINE PHENCYCLIDINE SCREEN NEGATIVE (Neg)
--- NOTE | 2023-09-12 00:42 | NUR ---
Patient c/o increased depression after her pit bull 3 years ago. Patient states she goes to AA. Patient not wanting to leave the house. Patient not showering. Increased eating. Having increased suicidal thoughts x 6 months. Patient has a HX of cutting her wrists as a suicidal gesture. Patient stated she knew she would act on it if she didn't do something drastic and stated she was glad she came here. Continue to monitor.
[2023-09-12] MEDS ORDERED: CHOL50002 PO (00:57)
[2023-09-12] MEDS ORDERED: GABA300C PO (00:57)
--- NOTE | 2023-09-12 01:53 | NUR ---
Patient sleeping. No distress observed. Continue to monitor.
--- NOTE | 2023-09-12 03:37 | NUR ---
Patient sleeping prone. No distress observed. Continue to monitor.
[2023-09-12 05:05] LABS: ALBUMIN 3.4 G/DL (3.4-5.0); ANION GAP 2 (8-16); BLOOD UREA NITROGEN 7 MG/DL (7-18); BUN/CREATININE RATIO 6.3 (10.0-20.0); CALCIUM 9.9 MG/DL (8.5-10.1); CHLORIDE 109 MMOL/L (99-107); CREATININE 1.12 MG/DL (0.40-0.90); GLUCOSE 102 MG/DL (70-104); POTASSIUM 3.6 MMOL/L (3.5-5.1); SODIUM 142 MMOL/L (135-145); TOTAL CARBON DIOXIDE 31.4 MMOL/L (24-32); eCRCL 49 ML/MIN; eGFR 51 ML/MIN
--- NOTE | 2023-09-12 06:30 | NUR ---
Received pt. sleeping in bed, rr are even and unlabored.
[2023-09-12] MEDS ORDERED: levoTHYROXINE 25mcg tablet PO SCH (08:00)
[2023-09-12] MEDS ORDERED: lithium carbonate 150mg capsule PO SCH (08:00)
[2023-09-12] MEDS ORDERED: ergocalciferol (vit D2) capsule 50,000 UNITS (1,250mcg) CAPSULE PO SCH (08:00)
[2023-09-12] MEDS ORDERED: sertraline 50mg tablet PO SCH (08:00)
[2023-09-12] MEDS ORDERED: atorvastatin 10mg tablet PO SCH (08:00)
[2023-09-12] MEDS ORDERED: gabapentin 300mg capsule PO SCH (08:00)
--- NOTE | 2023-09-12 08:21 | NUR ---
Pt. is sitting up at bedside eating breakfast at this time.
[2023-09-12] MEDS ORDERED: budesonide 0.5mg/2ml UD nebule IH SCH (09:00)
--- NOTE | 2023-09-12 09:03 | NUR ---
Pt. reports she is no longer taking ordered Vitamin D2 Capsules 50,000 units weekly. Medication was non-administered.
--- NOTE | 2023-09-12 09:13 | NUR ---
Pt's mother called and is pt. is talking to her at this time.
[2023-09-12 09:31] VITALS: PULSE 96; RESP 16; O2SAT 99
[2023-09-12 09:36] VITALS: PULSE 94; RESP 18
--- NOTE | 2023-09-12 09:58 | NUR ---
1:1 was completed with pt. at bedside, pt. presents as very pleasant, however is depressed with hopelessness. She denies any current S/I and states, "I'm feeling less suicidal. Even though I feel that way, I'm not going to going to. Just fleeting thoughts" Pt. appears to have some difficulty expressing her thoughts and reports in a round-about manner that she is feeling overwhelmed at home and becomes easily confused. She states, "I need to get back to a routine for my brain." Pt. does endorse a previous suicide attempt of cutting in 2014 and shows this typewriter assembler the scars on her bilateral wrists. She states, "I didn't reach out for help then, but I am now." Pt. reports she has a boyfriend who is very supportive.
--- NOTE | 2023-09-12 10:18 | NUR ---
Pt. continues to sleep at this time, no s/s of distress noted.
--- NOTE | 2023-09-12 12:00 | NUR ---
[facility] is at bedside evaluating pt. at this time
--- NOTE | 2023-09-12 12:20 | NUR ---
Per [facility], pt. will be discharged home. A Taxi was called. Pt. is eating lunch at this time.
--- NOTE | 2023-09-12 12:45 | NUR ---
Pt. was discharged off the unit accompanied by Tech and security to a Taxi cab which will be transporting her home. Pt's belongings were returned to her by Tech. This securities underwriter returned pt's home medications and reviewed discharge instructions with her, and she reported understanding. Pt. was provided with mental health resources and is able to contract for safety.
[2023-09-12 12:48] VITALS: BP 120/74; PULSE 86; RESP 12; TEMP 97.6; O2SAT 99
[2023-09-12] MEDS ORDERED: traZODone 50mg tablet PO SCH (21:00)
== END 2023-09-12 13:00 | disposition home or self-care (01) ==
LOC: ER 19:37
DX: R45.851 Suicidal ideations (principal); Z20.822 Contact with and (suspected) exposure to COVID-19
CPT/HCPCS: 36415; 80048; 80053; 80305; 80320; 81001; 81025; 83735; 84443; 85025; 87811; 94640; 94760; 99285

== ENCOUNTER 2023-09-16 18:03 | Emergency (ER) | payer MEDICAID ==
[~2023-09-16] VITALS: Ht 162.6 cm; Wt 94.6 kg
[~2023-09-16 18:03] MED LIST changes: +CHOL50002 PO; -CIPR250T26 PO; -NICO-630 TD; -PHEN-716 PO
[2023-09-16 18:36] VITALS: BP 133/85; PULSE 95; RESP 16; TEMP 98.3; O2SAT 99
[2023-09-16] MEDS ORDERED: DOXY-356 PO (19:13)
== END 2023-09-16 19:36 | disposition home or self-care (01) ==
LOC: ER 18:05
DX: L60.0 Ingrowing nail (principal); L03.032 Cellulitis of left toe; R22.43 Localized swelling, mass and lump, lower limb, bilateral; E78.00 Pure hypercholesterolemia, unspecified; J45.909 Unspecified asthma, uncomplicated; E03.9 Hypothyroidism, unspecified; Z90.49 Acquired absence of other specified parts of digestive tract; Z90.710 Acquired absence of both cervix and uterus; Z56.0 Unemployment, unspecified; Z79.2 Long term (current) use of antibiotics
CPT/HCPCS: 99283

== ENCOUNTER 2024-02-12 14:54 | Emergency (ER) | payer MEDICAID ==
[~2024-02-12] VITALS: Ht 162.6 cm; Wt 80.4 kg
[2024-02-12 15:10] VITALS: BP 115/65; PULSE 92; RESP 16; TEMP 98.4; O2SAT 98
== END 2024-02-12 15:35 | disposition home or self-care (01) ==
LOC: ER 14:54
DX: F10.20 Alcohol dependence, uncomplicated (principal); J45.909 Unspecified asthma, uncomplicated; E78.00 Pure hypercholesterolemia, unspecified; Z79.899 Other long term (current) drug therapy; Z79.1 Long term (current) use of non-steroidal anti-inflammatories (NSAID)
CPT/HCPCS: 99281

== ENCOUNTER 2024-06-25 16:50 | Emergency (ER) | payer MEDICAID ==
[~2024-06-25] VITALS: Ht 162.6 cm; Wt 61.1 kg
[2024-06-25] MEDS ORDERED: ONDA-243 PO (17:08)
[2024-06-25] MEDS: chlordiazePOXIDE 25mg capsule PO ONE (17:26)
[2024-06-25 17:28] VITALS: BP 147/51; PULSE 16; RESP 16; TEMP 98.5; O2SAT 95
== END 2024-06-25 17:29 | disposition home or self-care (01) ==
LOC: ER 16:51
DX: F10.20 Alcohol dependence, uncomplicated (principal); E78.00 Pure hypercholesterolemia, unspecified; J45.909 Unspecified asthma, uncomplicated; E03.9 Hypothyroidism, unspecified; F41.9 Anxiety disorder, unspecified; F32.A Depression, unspecified; Z98.890 Other specified postprocedural states; Z90.49 Acquired absence of other specified parts of digestive tract; Z90.710 Acquired absence of both cervix and uterus; Z56.0 Unemployment, unspecified; Z79.899 Other long term (current) drug therapy
CPT/HCPCS: 99283

== ENCOUNTER 2024-12-30 23:38 | Emergency (ER) | payer MEDICAID ==
[~2024-12-30] VITALS: Ht 162.6 cm; Wt 60.7 kg
[~2024-12-30 23:38] MED LIST changes: +CHLO25CA10 PO; +ONDA-243 PO
[2024-12-30 23:40] VITALS: BP 110/91; PULSE 82; RESP 16; O2SAT 96
[2024-12-31] MEDS ORDERED: CLOT15CR73 TOP (00:46)
[2024-12-31 00:57] VITALS: TEMP 98.7
== END 2024-12-31 01:02 | disposition home or self-care (01) ==
LOC: ER 23:39
DX: B35.9 Dermatophytosis, unspecified (principal); E78.00 Pure hypercholesterolemia, unspecified; E03.9 Hypothyroidism, unspecified; F31.9 Bipolar disorder, unspecified; F41.9 Anxiety disorder, unspecified; J45.909 Unspecified asthma, uncomplicated; F10.10 Alcohol abuse, uncomplicated; Z90.49 Acquired absence of other specified parts of digestive tract; Z90.710 Acquired absence of both cervix and uterus; Y90.9 Presence of alcohol in blood, level not specified; Z98.890 Other specified postprocedural states
CPT/HCPCS: 99283

== ENCOUNTER 2025-02-20 16:11 | Emergency (ER) | payer MEDICAID ==
[~2025-02-20] VITALS: Ht 162.6 cm; Wt 60.9 kg
[2025-02-20 16:14] VITALS: TEMP 98.1
[2025-02-20 16:35] LABS: BILIRUBIN,URINE NEGATIVE (Neg); CLARITY,URINE CLEAR (Clear); COLOR,URINE YELLOW (Yellow); GLUCOSE, URINE NEGATIVE (Neg); KETONES,URINE NEGATIVE (Neg); LEUKOCYTE ESTERASE ,URINE NEGATIVE (Neg); NITRITES, URINE NEGATIVE (Neg); OCCULT BLOOD,URINE NEGATIVE (Neg); PROTEIN,URINE NEGATIVE (Neg); UROBILINOGEN,URINE 0.2 E.U/dL (0.2-1.0)
[2025-02-20 16:37] LABS: UA COLLECTION TYPE CLN CATCH MIDSTREAM
[2025-02-20 16:49] LABS: BASOPHILS # (AUTO) 0.1 X10'3 (0-0.2); BASOPHILS % (AUTO) 1.2 % (0-1); EOSINOPHILS # (AUTO) 0.1 X10'3 (0-0.9); HEMATOCRIT 37.2 % (35.0-45.0); HEMOGLOBIN 12.1 g/dl (12.0-16.0); LYMPHOCYTES # (AUTO) 0.9 X10'3 (1.1-4.8); LYMPHOCYTES % (AUTO) 13.8 % (21-51); MEAN CORPUSCULAR HEMOGLOBIN 31.2 PG (27.0-31.0); MEAN CORPUSCULAR HGB CONC 32.5 g/dL (33.0-36.5); MONOCYTES # (AUTO) 0.3 X10'3 (0-0.9); MONOCYTES % (AUTO) 4.4 % (2-12); NEUTROPHILS # (AUTO) 5.4 X10'3 (1.8-7.7); NEUTROPHILS % (AUTO) 79.6 % (42-75); PLATELET COUNT 297 X10'3 (140-440); RED BLOOD COUNT 3.87 X10'6 (4.20-5.60); RED CELL DISTRIBUTION WIDTH 11.9 % (11.5-14.5); WHITE BLOOD COUNT 6.8 X10'3 (4.5-11.0)
[2025-02-20 17:07] LABS: ALANINE AMINOTRANSFERASE 31 U/L (12-78); ALBUMIN 3.6 G/DL (3.4-5.0); ALKALINE PHOSPHATASE 82 IU/L (46-116); ANION GAP 6 (8-16); ASPARTATE AMINO TRANSFERASE 20 U/L (10-37); BILIRUBIN,TOTAL 0.5 MG/DL (0.1-1.0); BLOOD UREA NITROGEN 16 MG/DL (7-18); BUN/CREATININE RATIO 16.7 (10.0-20.0); CALCIUM 9.4 MG/DL (8.5-10.1); CHLORIDE 101 MMOL/L (99-107); CREATININE 0.96 MG/DL (0.40-0.90); GLUCOSE 95 MG/DL (70-104); LIPASE 39 U/L (16-77); POTASSIUM 3.4 MMOL/L (3.5-5.1); SODIUM 134 MMOL/L (135-145); TOTAL CARBON DIOXIDE 26.9 MMOL/L (24-32); TOTAL PROTEIN 7.2 G/DL (6.4-8.2); eCRCL 57 ML/MIN; eGFR 60 ML/MIN
[2025-02-20] MEDS ORDERED: normal saline 1000ml 1,000 ML IV ONE (18:00)
[2025-02-20] MEDS ORDERED: ketorolac trometh 30MG/ML vial 30 MG/ML VIAL IV ONE (18:00)
[2025-02-20 18:15] VITALS: BP 141/75; PULSE 50; RESP 18; O2SAT 100
[2025-02-20] MEDS ORDERED: LIDO700A32 TOP (18:28)
[2025-02-20] MEDS ORDERED: CYCL-1 PO (18:28)
== END 2025-02-20 18:35 | disposition left against medical advice (07) ==
LOC: ER 16:11
DX: M54.50 Low back pain, unspecified (principal); R10.9 Unspecified abdominal pain; E03.9 Hypothyroidism, unspecified; E78.00 Pure hypercholesterolemia, unspecified; F41.9 Anxiety disorder, unspecified; F31.9 Bipolar disorder, unspecified; J45.909 Unspecified asthma, uncomplicated; Z90.49 Acquired absence of other specified parts of digestive tract; Z90.710 Acquired absence of both cervix and uterus; Z98.890 Other specified postprocedural states
CPT/HCPCS: 36415; 74176; 80053; 81003; 83690; 85025; 99284; J7030

== ENCOUNTER 2025-05-24 18:17 | Emergency (ER) | payer MEDICAID ==
[~2025-05-24] VITALS: Ht 162.6 cm; Wt 58.6 kg
[~2025-05-24 18:17] MED LIST changes: +CYCL-1 PO; +LIDO-52 TOP
--- NOTE | 2025-05-24 18:47 | Physician Documentation ---
History of Present Illness Chief Complaint: Abdominal Pain w/vomiting Stated Complaint: ETOH/KIDNEY/PANCREAS PAIN Time Seen by MD: 18:45 Primary Medical Doctor: KAMERON PICKERING This is a 55-year-old female with a history of alcohol hand methamphetamine abuse, patient reports vomiting, left lower quadrant pain, and left flank pain onset last night. Patient reports last alcoholic drink was at 9:00 a.m. this morning. Medication Reconciliation Allergies: Coded Allergies: No Known Allergies (Unverified , 12/30/24) Scheduled Atorvastatin Calcium (Atorvastatin Calcium), 1 TAB PO DAILY, (Reported) Beclomethasone Dipropionate (Qvar Redihaler), 1 PUFF PO BID, (Reported) Chlordiazepoxide Hcl (Librium), 25 MG PO Q6H Chlordiazepoxide Hcl (Librium), 25 MG PO DIRECTED Cholecalciferol (Vitamin D3) (D3-50), 1 CAP PO Q7D, (Reported) Cyclobenzaprine* (Cyclobenzaprine*), 1 TAB PO HS Gabapentin (Neurontin), 300 MG PO BID, (Reported) Levothyroxine Sodium (Levothyroxine Sodium), 2 CAP PO QAM, (Reported) Lidocaine (Lidoderm), 1 PATCH TOP DAILY [place] Carbonate* ([place] Carbonate*), 300 MG PO BID, (Reported) Sertraline HCl (Sertraline HCl), 100 MG PO DAILY, (Reported) Trazodone HCl (Trazodone HCl), 1 TAB PO HS, (Reported) Scheduled PRN ONDANSETRON ODT 4mg tablet (Ondansetron Odt), 1 TAB PO Q6H PRN PRN for nausea/vomiting Past Medical History Past Medical History: High Cholesterol, Asthma, UTI, Hypothyroidism, Anxiety, Bipolar, Depression Past Surgical History: abdominal surgery, appendectomy, hysterectomy Other Past Surgical History: Abd Lapx2 Ovarian cyst removal Alcohol Use: Abuse Drug Use: none Lives with: S/O Lives In: Home Occupation: unemployed, disabled Physical Exam Vital Signs: Temperature: 98.3, Heart Rate: 87, Respiratory Rate: 16, BP: 128/77, Pulse Oximetry: 100, Weight: 58.600 Oxygen Flow Rate: 0 Physical Exam VITALS: Reviewed and as above. GENERAL: Alert, nontoxic appearing, no apparent distress. RESPIRATORY: No increased work of breathing, no respiratory distress, speaking in full clear sentences Progress Results/Orders Results/Orders Vital Signs 05/24/25 18:26 Temp 98.3 Pulse 87 Resp 16 B/P (MAP) 128/77 Pulse Ox 100 O2 Flow Rate 0 Medical Decision Making Findings MSE performed in triage and patient returned to ED lobby by nursing staff Departure Referrals: NO PRIMARY CARE PROVIDER (PCP) SUZANNE SUGGS CHIEF MEDICAL PHYSICIST May 24, 2025 18:47
[2025-05-24 19:33] LABS: BILIRUBIN,URINE NEGATIVE (Neg); CLARITY,URINE CLEAR (Clear); COLOR,URINE YELLOW (Yellow); GLUCOSE, URINE NEGATIVE (Neg); KETONES,URINE NEGATIVE (Neg); LEUKOCYTE ESTERASE ,URINE NEGATIVE (Neg); NITRITES, URINE NEGATIVE (Neg); OCCULT BLOOD,URINE NEGATIVE (Neg); PROTEIN,URINE NEGATIVE (Neg); UROBILINOGEN,URINE 0.2 E.U/dL (0.2-1.0)
[2025-05-24 19:37] LABS: UA COLLECTION TYPE CLN CATCH MIDSTREAM
[2025-05-24 19:39] LABS: URINE HCG NEGATIVE (NEG)
== END 2025-05-25 00:03 | disposition left against medical advice (07) ==
LOC: ER 18:18
DX: F10.10 Alcohol abuse, uncomplicated (principal); E03.9 Hypothyroidism, unspecified; E78.00 Pure hypercholesterolemia, unspecified; F41.9 Anxiety disorder, unspecified; F31.9 Bipolar disorder, unspecified; J45.909 Unspecified asthma, uncomplicated; Z90.49 Acquired absence of other specified parts of digestive tract; Z90.710 Acquired absence of both cervix and uterus; Z98.890 Other specified postprocedural states; Z56.0 Unemployment, unspecified; Z79.899 Other long term (current) drug therapy; Y90.9 Presence of alcohol in blood, level not specified
CPT/HCPCS: 81003; 81025; 99283

== ENCOUNTER 2025-06-23 21:23 | Emergency (ER) | payer MEDICAID ==
[~2025-06-23] VITALS: Ht 162.6 cm; Wt 58.8 kg
[2025-06-23 21:40] VITALS: BP 144/84; PULSE 88; RESP 16; O2SAT 99
[2025-06-23] MEDS ORDERED: CHLO25CA10 PO (23:04)
--- NOTE | 2025-06-23 23:11 | Physician Documentation ---
History of Present Illness ~ Chief Complaint: Medical Clearance Stated Complaint: MED CLEARANCE Time Seen by MD: 22:53 Primary Medical Doctor: KAMERON PICKERING The patient is Seen today with complaints of alcohol addiction. /withdrawal. Patient states she drinks about a 5th of hard liquor daily. Patient states he is going to a detox facility in [place] and needs a prescription for a Librium taper. Patient states he last drank about 2 hours ago. She has no other concern or complaint at this time. She denies any current chest pain or shortness of breath or abdominal pain or nausea, vomiting, diarrhea. Tetanus within 5 years?: No (unk) Medication Reconciliation Allergies: Coded Allergies: No Known Allergies (Unverified , 12/30/24) Scheduled Atorvastatin Calcium (Atorvastatin Calcium), 1 TAB PO DAILY, (Reported) Beclomethasone Dipropionate (Qvar Redihaler), 1 PUFF PO BID, (Reported) Chlordiazepoxide Hcl (Librium), 25 MG PO Q6H Chlordiazepoxide Hcl (Librium), 25 MG PO DIRECTED Cholecalciferol (Vitamin D3) (D3-50), 1 CAP PO Q7D, (Reported) Cyclobenzaprine* (Cyclobenzaprine*), 1 TAB PO HS Gabapentin (Neurontin), 300 MG PO BID, (Reported) Levothyroxine Sodium (Levothyroxine Sodium), 2 CAP PO QAM, (Reported) Lidocaine (Lidoderm), 1 PATCH TOP DAILY [place] Carbonate* ([place]ray Carbonate*), 300 MG PO BID, (Reported) Sertraline HCl (Sertraline HCl), 100 MG PO DAILY, (Reported) Trazodone HCl (Trazodone HCl), 1 TAB PO HS, (Reported) Scheduled PRN ONDANSETRON ODT 4mg tablet (Ondansetron Odt), 1 TAB PO Q6H PRN PRN for nausea/vomiting Past Medical History Past Medical History: High Cholesterol, Asthma, UTI, Hypothyroidism, Anxiety, Bipolar, Depression Past Surgical History: abdominal surgery, appendectomy, hysterectomy Other Past Surgical History: Abd Lapx2 Ovarian cyst removal Smoking Status: Current every day smoker Alcohol Use: Abuse Drug Use: none Lives with: S/O Lives In: Home Occupation: unemployed, disabled Review of Systems Constitutional: Denies: chills, fever, weakness Eyes: Denies: pain, blurred vision ENT: Denies: ear pain, nose pain, throat pain, mouth pain Respiratory: Denies: cough, shortness of breath Cardiovascular: Denies: chest pain, palpitations Gastrointestinal: Denies: abdominal pain, nausea, vomiting Genitourinary: Denies: burning, dysuria Female Genitalia: Denies: vaginal discharge, pelvic pain Neurological: Denies: headache, dizziness Musculoskeletal: Denies: pain, swelling Integumentary: Denies: rash, lesions Allergic/Immunologic: Denies: hives, itching Hematologic/Lymphatic: Denies: no symptoms reported Psychiatric: Denies: depression, anxiety Physical Exam Vital Signs: Temperature: 98.7, Source: Temporal, Heart Rate: 88, Respiratory Rate: 16, BP: 144/84, Pulse Oximetry: 99, Weight: 58.800 Oxygen Flow Rate: 0 Physical Exam General: Awake and Alert, no acute distress. HEENT: Conjunctiva pink, Sclera clear, Mucus Membranes moist. Neck: Supple without masses and tenderness. Resp: Unlabored. Lungs clear to auscultation bilaterally. Heart: Regular Rate and rhythm, normal S1 and S2 without murmur, rub or gallop. Abdomen: Soft and non tender no organomegaly Extremities: No cyanosis,clubbing or edema. Skin: Warm and Dry. Progress Results/Orders Results/Orders Vital Signs 06/23/25 21:40 Temp 98.7 Pulse 88 Resp 16 B/P (MAP) 144/84 Pulse Ox 99 O2 Flow Rate 0 Medical Decision Making Findings The patient is Seen today with complaints of alcohol addiction. /withdrawal. Patient states she drinks about a 5th of hard liquor daily. Patient states he is going to a detox facility in [place] and needs a prescription for a Librium taper. Patient states he last drank about 2 hours ago. She has no other concern or complaint at this time. She denies any current chest pain or shortness of breath or abdominal pain or nausea, vomiting, diarrhea. Patient was given prescription of Librium taper sent to [facility] in [place]. Patient is medically cleared for detox program in [place] or any other facility at this time. Patient will return to ED with any worsening, concerning or changing symptoms. Departure Disposition: 01 HOME / SELF CARE / HOMELESS Impression: Primary Impression: Alcoholism Additional Impression: Alcohol withdrawal Qualified Codes: F10.930 - Alcohol use, unspecified with withdrawal, u ncomplicated Condition: Stable Discharge Instructions: Medical Screening Exam Additional Instructions: Patient was given prescription of Librium taper sent to [facility] in [place]. Patient is medically cleared for detox program in [place] or any other facility at this time. Patient will return to ED with any worsening, concerning or changing symptoms. Referrals: NO PRIMARY CARE PROVIDER (PCP) Prescriptions Chlordiazepoxide Hcl (Librium) 25 Mg Capsule 2 CAP PO Q4H PRN for anxiety for 5 Days, #24 CAP 0 Refills Prov: CARLA LIU PAC 06/23/25 Signature Scribe Signature: No scribe Attestation: No scribe CARLA LIU PAC Jun 23, 2025 23:10
[2025-06-23 23:17] VITALS: TEMP 98.7
== END 2025-06-23 23:23 | disposition home or self-care (01) ==
LOC: ER 21:24
DX: F10.239 Alcohol dependence with withdrawal, unspecified (principal); E78.00 Pure hypercholesterolemia, unspecified; E03.9 Hypothyroidism, unspecified; J45.909 Unspecified asthma, uncomplicated; F17.200 Nicotine dependence, unspecified, uncomplicated; F31.9 Bipolar disorder, unspecified; F41.9 Anxiety disorder, unspecified; Z90.49 Acquired absence of other specified parts of digestive tract; Z90.710 Acquired absence of both cervix and uterus; Z98.890 Other specified postprocedural states; Z79.899 Other long term (current) drug therapy; Z76.0 Encounter for issue of repeat prescription; Z56.0 Unemployment, unspecified; Y90.7 Blood alcohol level of 200-239 mg/100 ml
CPT/HCPCS: 99281

== ENCOUNTER 2025-10-12 03:27 | Emergency (ER) | payer MEDICAID ==
[~2025-10-12] VITALS: Ht 162.6 cm; Wt 64.1 kg
[2025-10-12] MEDS ORDERED: CHLO25CA10 PO (03:49)
--- NOTE | 2025-10-12 03:50 | Physician Documentation ---
History of Present Illness ~ Chief Complaint: Medical Clearance Stated Complaint: MEDICAL CLEARANCE FOR DETOX Time Seen by MD: 03:43 Primary Medical Doctor: [facility] HPI Patient is here for medical clearance to go to [facility] for alcohol abuse. Last drink 4 hours ago. She has tried multiple recovery facilities in his relapsed each time. Tetanus within 5 years?: No (unk) Medication Reconciliation Allergies: Coded Allergies: No Known Allergies (Unverified , 12/30/24) Scheduled Atorvastatin Calcium (Atorvastatin Calcium), 1 TAB PO DAILY, (Reported) Beclomethasone Dipropionate (Qvar Redihaler), 1 PUFF PO BID, (Reported) Chlordiazepoxide Hcl (Librium), 25 MG PO Q6H Chlordiazepoxide Hcl (Librium), 25 MG PO DIRECTED Cholecalciferol (Vitamin D3) (D3-50), 1 CAP PO Q7D, (Reported) Cyclobenzaprine* (Cyclobenzaprine*), 1 TAB PO HS Gabapentin (Neurontin), 300 MG PO BID, (Reported) Levothyroxine Sodium (Levothyroxine Sodium), 2 CAP PO QAM, (Reported) Lidocaine (Lidoderm), 1 PATCH TOP DAILY [place] Carbonate* ([place] Carbonate*), 300 MG PO BID, (Reported) Sertraline HCl (Sertraline HCl), 100 MG PO DAILY, (Reported) Trazodone HCl (Trazodone HCl), 1 TAB PO HS, (Reported) Scheduled PRN Chlordiazepoxide Hcl (Librium), 2 CAP PO Q4H PRN for anxiety ONDANSETRON ODT 4mg tablet (Ondansetron Odt), 1 TAB PO Q6H PRN PRN for nausea/vomiting Past Medical History Past Medical History: High Cholesterol, Asthma, UTI, Hypothyroidism, Anxiety, Bipolar, Depression Past Surgical History: abdominal surgery, appendectomy, hysterectomy Other Past Surgical History: Abd Lapx2 Ovarian cyst removal Alcohol Use: Abuse Drug Use: none Lives with: S/O Lives In: Home Occupation: unemployed, disabled Review of Systems ROS All review of systems negative except as per HPI Physical Exam Vital Signs: Temperature: 98.1, Source: Oral, Heart Rate: 93, Respiratory Rate: 15, BP: 135/92, Pulse Oximetry: 99, Weight: 64.090 Oxygen Flow Rate: 0 Physical Exam General: Patient is awake, alert, oriented x4 in no acute distress. No tremors Head: Normocephalic and atraumatic. Eyes: Conjunctival normal. EOMI. PERRL. ENT: Mucous membranes moist. Neck: Supple, trachea is midline. Chest: Clear to auscultation bilaterally without rales, rhonchi, or wheezes. There is no accessory muscle use or retractions. Cardiac: RRR without murmurs, gallops, or rubs. Abd: Soft, nondistended, nontender, with normoactive bowel sounds. No guarding, rebound, or rigidity. Progress Results/Orders Results/Orders Vital Signs 10/12/25 03:30 Temp 98.1 Pulse 93 Resp 15 B/P (MAP) 135/92 Pulse Ox 99 O2 Flow Rate 0 Medical Decision Making Additional information obtaine: old records Findings Patient presents to the emergency room for medical clearance to go to [facility]. That has no evidence of alcohol withdrawal. I will give her some Librium. He had not feel emergent labs or imaging is necessary given stable vitals. Differential Dx:Considerations: Include: Intoxication-Alcohol, Intoxication- Other drug, Personality disorder, Substance abuse disorder, Acute delirium, Closed head injury, Cervical spine injury, Skull fracture, Fracture(s), Abrasion, Contusion, Foreign body, Hematoma, Laceration, Alcohol withdrawl syndrom, Encephalopathy, Hepatitis, Medically stable, Other Departure Disposition: 01 HOME / SELF CARE / HOMELESS Impression: Primary Impression: General medical exam Condition: Stable Discharge Instructions: Medical Screening Exam Additional Instructions: You are medically cleared to go to [facility] Referrals: NO PRIMARY CARE PROVIDER (PCP) Prescriptions Chlordiazepoxide Hcl (Librium) 25 Mg Capsule 2 CAP PO Q4H PRN for alcohol withdrawal, #24 CAP 0 Refills Prov: CUONG HENRY MD 10/12/25 Signature Scribe Signature: No scribe Attestation: The note accurately reflects work and decisions made by me.Cuong Henry MD 10/12/25 03:50 CUONG HENRY MD Oct 12, 2025 03:50
[2025-10-12 04:08] VITALS: BP 134/94; PULSE 92; RESP 18; TEMP 98.6; O2SAT 99
== END 2025-10-12 04:10 | disposition home or self-care (01) ==
LOC: ER 03:28
DX: Z00.00 Encounter for general adult medical examination without abnormal findings (principal); F10.10 Alcohol abuse, uncomplicated; E78.00 Pure hypercholesterolemia, unspecified; E03.9 Hypothyroidism, unspecified; F31.9 Bipolar disorder, unspecified; F41.9 Anxiety disorder, unspecified; Z90.49 Acquired absence of other specified parts of digestive tract; Z90.710 Acquired absence of both cervix and uterus; Z98.890 Other specified postprocedural states; Z56.0 Unemployment, unspecified; Z87.440 Personal history of urinary (tract) infections; Z79.899 Other long term (current) drug therapy; Y90.9 Presence of alcohol in blood, level not specified
CPT/HCPCS: 99283